=== PATIENT | male | born 2000 | race American Indian/Alaskan Native ===

== ENCOUNTER 2023-06-02 07:41 | Emergency (ER) | payer SELFPAY ==
[2023-06-02 07:54] VITALS: BP 111/76; PULSE 124; RESP 18; TEMP 36.7; O2SAT 98
[2023-06-02] MEDS: SODIUM CHLORIDE 0.9% IV 1,000 ML 999 ML IV CONT (08:14)
[2023-06-02] MEDS: ONDANSETRON INJ 4 MG/2 ML VIAL IV PUSH (08:14)
[2023-06-02] MEDS: methylPREDNISolone SOD SUCC 125 MG VIAL IV PUSH (08:15)
[2023-06-02] MEDS: diphenhydrAMINE HCl INJ 50 MG/ML VIAL 25 MG IV PUSH (08:15)
[2023-06-02] MEDS: FAMOTIDINE 20 MG/2 ML VIAL IV PUSH (08:15)
--- NOTE | 2023-06-02 08:17 | ED.SKABFB ---
HPI - Skin/Abscess/Foreign Bdy General Chief complaint: Skin/Abscess/Foreign Body Stated complaint: rash Time Seen by Provider: 06/02/23 07:57 History of Present Illness HPI narrative: Pt awlke with hives on back and extremities and had episode of vomiting and diarrhea. Pt took benadryl 25 mg po. Pt used new conditioner hair product last night but otherwise no new soaps or detergents r meds. Pt denies SOB or throat swelling. Related Data Allergies Allergy/AdvReac Type Severity Reaction Status Date / Time No Known Allergies Allergy Mild Verified 06/02/23 08:03 Review of Systems Review of Systems: All systems reviewed & are unremarkable except as noted in HPI and below Exam Const: General: healthy appearing Nutritional Appearance: well nourished Orientation/consciousness: patient oriented x3 Limitations: no limitations HENMT: Mouth: Yes Normal oral and palatal mucosa present Eyes: Conjunctivae: conjunctivae normal EOM: EOMs intact bilaterally Neck: Neck: normal visual inspection Resp: Effort & Inspection: normal respiratory effort Auscultation: clear to auscultation bilaterally Cardio: Rate: regular rate Rhythm: regular rhythm Skin: Other: hives trun and extremities Neuro: General: patient oriented x3, moves all extremities and no focal motor deficits Speech: normal speech Extrem: General: normal to inspection and no clubbing, cyanosis or edema Psych: Mental Status: mental status grossly normal Affect: normal affect Attitude: cooperative Course Vital Signs Vital signs: Vital Signs Temperature 98.0 F 06/02/23 07:54 Pulse Rate 124 H 06/02/23 07:54 Respiratory Rate 18 06/02/23 07:54 Blood Pressure 111/76 06/02/23 07:54 Pulse Oximetry 98 06/02/23 07:54 Oxygen Delivery Room Air 06/02/23 07:54 Temperature 98.0 F 06/02/23 07:54 Pulse Rate 91 06/02/23 09:02 Respiratory Rate 16 06/02/23 09:02 Blood Pressure 132/78 06/02/23 09:02 Pulse Oximetry 99 06/02/23 09:02 Oxygen Delivery Room Air 06/02/23 07:54 MDM - Skin/Abscess/Foreign Bdy MDM Narrative Medical decision making narrative: seems like classic urticaria, will treat with benadryl pepcid solumedrol will give some zofran for nausea and some IVF as well. Pt feels better after meds, hives nearly resolved. can take otc pepcid and benadryl and will prescribe prednisone for home. Discharge Plan Discharge Clinical Impression: Urticaria Patient Disposition: Home, Self-Care Condition: Improved Instructions: Antibiotic Form, Urticaria (ED) Prescriptions: New prednisone 10 mg tablets,dose pack See Rx Instructions .ROUTE .COMPLEX Qty: 21 0RF Rx Instructions: orally per package directions Follow-up/Referrals: Theo Calloway MD [Primary Care Provider] -
[2023-06-02 08:25] VITALS: BP 128/87; PULSE 86; RESP 16; O2SAT 99
[2023-06-02 09:02] VITALS: BP 132/78; PULSE 91; RESP 16; O2SAT 99
== END 2023-06-02 09:04 | disposition home or self-care (01) ==
PROVIDERS: Emergency Provider Emergency Medicine; PCP Pediatrics
DX: L50.9 Urticaria, unspecified (principal)
CPT/HCPCS: 96361; 96374; 96375; 99284; J1200; J2405; J2930; J7030

== ENCOUNTER 2024-11-16 13:02 | Outpatient (CLI) | payer BC, SELFPAY ==
--- NOTE | ~2024-11-16 | US_ITS ---
Testicular ultrasound with doppler. Indication: Hematochezia. Technique: Real-time sonography the scrotum was performed. Color flow Doppler and Doppler spectral an alysis were performed. Findings: The testes are homogeneous in echotexture bilaterally. There is no evidence of an intrates ticular mass. The right testis measures 4.5 x 2.2 x 2.6 cm and the left 4.1 x 2.5 x 2.5 cm. There is color-flow seen to both testes. Arterial and venous spectral waveforms are seen in both testes. There is no sonographic evidence of torsion. Small left epididymal cyst or spermatocele present. Right epi didymis unremarkable. Impression: Small probable left epididymal cyst or spermatocele. Reviewed, dictated and finalized at location . Impression: Small probable left epididymal cyst or spermatocele.
== END 2024-11-16 13:03 | disposition home or self-care (01) ==
LOC: MICIMG 13:07
DX: N50.89 Other specified disorders of the male genital organs (principal); K92.1 Melena
CPT/HCPCS: 76870; 93976

== ENCOUNTER 2024-12-22 00:29 | Day surgery (SDC) | payer BC, SELFPAY ==
[2024-12-14 12:42] VITALS: BMI 21.4
--- OUTSIDE RECORDS SUMMARY | 2024-12-22 00:31 | XMS_ITS | Clinical Summary ---
Author Organization [address] Address [address] [place] [phone] Care Team Providers Care Supervisor Looping Name Role Phone Theo Quinn MD Primary Care Provi vanessa Allergies No known active allergies Medications ketoconazole (NIZORAL) 2 % cream Apply topically daily 60 g 1 5 12/04/19 25 Active Problems Problem Noted Date Diagnosed Date Elevated blood pressure read ing without diagnosis of hypertension 11/03/2024 Routine adult health maintenance 11/03/2024 Hematochezia 11/03/2024 Scrotal mass 11/03/2024 Tinea corporis 11/03/2024 Encounters Date Type Department Care Team Description 12/16/2024 Telephone [facility] Primary Care at [address] [phone] Theo Quinn MD 12/10/2024 Orders Only [facility] Primary Care at [address] [phone] Francois Montez MD 11/17/2024 Telephone [facility] Primary Care at [address] [phone] Theo Quinn MD Medical Records Request 11/10/2024 Documentation [facility] Primary Care at [address] [phone] Joann Maynard 11/10/2024 Telephone [facility] Primary Care at [address] [phone] Theo Quinn MD Medical Question/Miscellane ous 11/07/2024 Results Follow-Up [facility] Primary Care at [address] [phone] Theo Quinn MD 11/05/2024 11:45 AM CDT Lab [facility] Outpatient Lab at [address] [phone] 11/04/2024 5:30 PM CDT - 11/04/2024 11:59 PM CDT Hospital Encounter [address] [address] Hematochezia Discharge Disposition: Discharge to home or self care 11/03/2024 9:30 AM CDT Lab [facility] Outpatient Lab at [address] [phone] Blood in stool (Primary Dx) 11/03/2024 9:21 AM CDT - 11/03/2024 11:59 PM CDT Hospital Encounter [address] [address] Hematochezia Discharge Disposition: Discharge to home or self care 11/03/2024 8:45 AM CDT Office Visit [facility] Primary Care at [address] [phone] Theo Quinn MD Routine adult health maintenance (Primary Dx); Elevated blood pressure reading without diagnosis of hypertension; Hematochezia; Scrotal mass; Tinea corporis 11/03/2024 Results Follow-Up [facility] Primary Care at [address] [phone] Theo Quinn MD 11/03/2024 Telephone [facility] Primary Care at [address] [place] [phone] Theo Quinn MD Medical Question/Miscellane ous from Last 3 Months Immunizations Immunization Administration Dates Next Due DTaP 02/25/2002,2001,2001 Hep B, Adolescent or Pediatric 2001 Hib (PRP-T) 02/25/2002,2001,2001 IPV 2001,2001 Family History Medical History Relation Name Comments Cancer Maternal Grandfather Colon cancer Maternal Grandmother No Known Problems Mother Relation Name Status Comments Father Unknown Maternal Grandfather Maternal Grandmother Mother Alive Social History Tobacco Use Types Packs/Day Years Used Date Smoking Tobacco: Never Passive Smoke Exposure: Never Smokeless Tobacco: Never PHQ-2 Answer Date Recorded PHQ-2 Total Score (If total score is 3 or more points, staff should administer the PHQ-9) 0 11/03/2024 Sex and Gender Information Value Date Recorded Sex Assigned at Not on file Legal Sex Male 7:18 PM CDT Gender Identity Not on file Sexual Orientation Not on file Obstetrics History Last Filed Vital Signs Vital Sign Reading Time Taken Comments Blood Pressure 130/88 11/03/2024 8:45 AM CDT Pulse 107 11/03/2024 8:45 AM CDT Temperature 36.2 C (97.2 F) 11/03/2024 8:45 AM CDT Respiratory Rate 16 11/03/2024 8:45 AM CDT Oxygen Saturation 99% 11/03/2024 8:45 AM CDT Inhaled Oxygen Concentration - - Weight 66.5 kg (146 lb 11.2 oz) 11/03/2024 8:45 AM CDT Height 177.8 cm (5' 10 ) 11/03/2024 8:45 AM CDT Body Mass Index 21.05 11/03/2024 8:45 AM CDT Plan of Treatment Health Maintenance Due Date Last Done Comments Hepatitis C Screening 2001 DTaP/Tdap/Td Vaccine (4 - Tdap) 2012 02/25/2002, 2001, 2001 Varicella Vaccines (1 of 2 - 13+ 2-dose series) 2014 HPV Vaccines (1 - Male 3-dos e series) 2016 Meningococcal B Vaccine (1 o f 2 - Standard) 2017 Regular Well Visit/Exam 18-64 2019 Covid-19 Vaccine (3 - 2023-2 5 season) 2024 03/19/2021, 02/26/2021 Influenza Vaccine (Season Ended) 2025 Depression Screening 11/03/2025 11/03/2024 Hepatitis B Screening Completed 2001 Pneumococcal vaccine <65 Aged Out No longer eligible based on patient's age to complete this topic Procedures Procedure Name Priority Date/Time Associated Diagnosis Comments US SCROTUM Schedule Routine, Read Routine (OP Routine) 11/16/2024 10:29 AM CDT GUAIAC OCCULT BLOOD, FECAL, NOT FOR NEOPLASM SCREENING Routine 11/04/2024 5:30 PM CDT Hematochezia EGFR Routine 11/03/2024 9:21 AM CDT Hematochezia DIFFERENTIAL AUTO Routine 11/03/2024 9:2 1 AM CDT Hematochezia COMPREHENSIVE METABOLIC PANEL Routine 11/03/2024 9:21 AM CDT Hematochezia CBC WITH AUTO DIFFERENTIAL Routine 11/03/2024 9:21 AM CDT Hematochezia from Last 3 Months Results * US Scrotum (11/16/2024 10:29 AM CDT) Anatomical Region Laterality Modality Testis N/A Ultrasound Historical Provider MD ROOT US PROCEDURES Final R esult * Guaiac occult blood, fecal, not for neoplasm screening (11/04/2024 5:30 PM CDT) Guaiac occult blood, fecal Negative Negative Stool 11/04/2024 5:30 PM CDT 11/05/2024 8:53 PM CDT Theo Quinn MD LAB BODY FLUIDS AND STOOLS ORDERABLES Final Result Performing Organization Address City/[facility] Co de Phone Number [facility] HERRERA [address] [place] [address] * eGFR (11/03/2024 9:21 AM CDT) eGFR >90 >=60 mL/min/1. 73 m2 Comment: Interpretive Data Reference Interval Normal >/= 90 mL/min/1.73m2 Mildly decreased* 60 - 89 mL/min/1.73m2 Mildly to moderately decreased 45 - 59 mL/min/1.73m2 Moderately to severely decreased 30 - 44 mL/min/1.73m2 Severely decreased 15 - 29 mL/min/1.73m2 Kidney Failure < 15 mL/min/1.73m2 *Relative to young adult level Estimated glomerular filtration rate is determined by the 2020 CKD-EPI equation recommended by the National Kidney Foundation (A Unifying Approach to GFR Estimation: Recommendations of the NKF-ASK Task Force on Reassessing the Inclusion of Race in Diagnosing Kidney Disease, JASN 2020). The CKD-EPI equation should not be used for patients with unstable renal function and has not been validated in children and those over 70. Current interpretive data was last reviewed 2021. Blood 11/03/2024 9:21 AM CDT 11/03/2024 3:07 PM CDT Theo Quinn MD LAB BLOOD ORDERABLE S Final Result Performing Organization Address City/[facility]/ZIP Co de Phone Number SHEILA HERRERA [address] [place] [address] * Differential, auto (11/03/2024 9:21 AM CDT) Neutrophil abs 3.2 1.5 - 6.5 K/cumm Imm gran abs 0.0 0.0 - 0.1 K/cumm [facility] Lymphocyte abs 2.1 0.8 - 3.3 K/cumm [facility] Monocyte abs 0.4 0.2 - 0.8 K/cumm [facility] Eosinophil abs 0.1 0.0 - 0.5 K/cumm [facility] Basophil abs 0.0 0.0 - 0.1 K/cumm [facility] Neutrophil pct 54.5 % [facility] Comment: Interpretive Data Percent cell count reference ranges are not reported, since discordance with absolute values may lead to misinterpretation of CBC data. Current Interpretive Data was last revised on 2017. Imm gran pct 0.2 % [facility] Comment: Interpretive Data Percent cell count reference ranges are not reported, since discordance with absolute values may lead to misinterpretation of CBC data. Current Interpretive Data was last revised on 2017. Lymphocyte pct 35.5 % [facility] Comment: Interpretive Data Percent cell count reference ranges are not reported, since discordance with absolute values may lead to misinterpretation of CBC data. Current Interpretive Data was last revised on 2017. Monocyte pct 7.3 % [facility] Comment: Interpretive Data Percent cell count reference ranges are not reported, since discordance with absolute values may lead to misinterpretation of CBC data. Current Interpretive Data was last revised on 2017. Eosinophil pct 2.0 % [facility] Comment: Interpretive Data Percent cell count reference ranges are not reported, since discordance with absolute values may lead to misinterpretation of CBC data. Current Interpretive Data was last revised on 2017. Basophil pct 0.5 % [facility] Comment: Interpretive Data Percent cell count reference ranges are not reported, since discordance with absolute values may lead to misinterpretation of CBC data. Current Interpretive Data was last revised on 2017. Blood 11/03/2024 9:21 AM CDT 11/03/2024 3:01 PM CDT us Theo Quinn MD LAB BLOOD ORDERABLE S Final Result [facility]ILA HERRERA [address] Department [place] [address] * CBC with auto differential (11/03/2024 9:21 AM CDT) WBC 5.9 3.8 - 9.9 K/cumm Hgb 14.8 13.0 - 17.5 g/dL [facility] Hct 45.7 38.9 - 50.3 % [facility] Plt 283 150 - 400 K/cumm [facility] MPV 10.3 9.1 - 12.3 fL [facility] RBC 5.15 4.30 - 5.80 M/cumm [facility] MCV 88.7 81.3 - 96.4 fL [facility] MCH 28.7 27.1 - 33.3 pg [facility] MCHC 32.4 32.3 - 35.7 g/dL [facility] RDW CV 12.6 11.1 - 14.9 % [facility] RDW SD 41.1 35.7 - 48.1 fL [facility] NRBC abs 0.00 0.00 - 0.01 K/cumm [facility] Blood 11/03/2024 9:21 AM CDT 11/03/2024 3:01 PM CDT Theo Quinn MD LAB BLOOD ORDERABLE S Final Result [facility] [address] Department [place] [address] * (ABNORMAL) Comprehensive metabolic panel (11/03/2024 9:21 AM CDT) Sodium 141 135 - 145 mmol/L Potassium, pl 4.0 3.3 - 4.9 mmol/L [facility] Chloride 103 97 - 110 mmol/L [facility] CO2 28 22 - 32 mmol/L [facility] Anion gap 10 2 - 15 mmol/L [facility] BUN 11 6 - 25 mg/dL [facility] Creatinine 0.77(L) 0.80 - 1.30 mg/dL [facility] Glucose 99 70 - 199 mg/dL [facility] Comment: Interpretive Data Fasting glucose >/= 126 mg/dl is diagnostic for diabetes. Fasting is defined as no caloric intake for at least 8 hours. Fasting glucose between 100 mg/dl to 125 mg/dl is diagnostic of prediabetes. In a patient with classic symptoms of hyperglycemia or hyperglycemic crisis, a random glucose >/= 200 mg/dl is diagnostic for diabetes. In the absence of unequivocal hyperglycemia, results should be confirmed by repeat testing. The classification and Diagnosis of Diabetes Diabetes Care 202; 46: S19-S40. Current interpretive data was last revised 2022. Calcium 9.6 8.5 - 10.3 mg/dL [facility] Bilirubin, total 0.4 0.1 - 1.2 mg/dL [facility] Protein, pl 7.7 6.5 - 8.5 g/dL [facility] Albumin 4.6 3.5 - 5.0 g/dL [facility] Alk phos 61 40 - 130 Units/L [facility] ALT 36 7 - 55 Units/L [facility] AST 27 10 - 50 Units/L [facility] Blood 11/03/2024 9:21 AM CDT 11/03/2024 3:01 PM CDT us Theo Quinn MD LAB BLOOD ORDERABLE S Final Result [facility] [id number] Department [place] [address] from Last 3 Months Insurance [facility] Care Teams Supervisor Looping Relationship Specialty Start Date End Date Theo Quinn MD [address] [facility] [address] [place] [address] PCP - General Family Practice 11/03/24
--- OUTSIDE RECORDS SUMMARY | 2024-12-22 00:31 | XMS_ITS | Referral Summary ---
Author Organization [address] Address [address] [place] [phone] Care Team Providers Care Crm Marketing Specialist Name Role Phone Theo Quinn MD Primary Care Provi vanessa Encounters Date Type Department Care Team Description 12/16/2024 Telephone [facility] Primary Care at [address] [phone] Theo Quinn MD 12/10/2024 Orders Only [facility] Primary Care at [address] [phone] ProviderFrancois MD 11/17/2024 Telephone [facility] Primary Care at [address] [phone] Theo Quinn MD Medical Records Request 11/10/2024 Documentation [facility] Primary Care at [address] [phone] Joann Maynard 11/10/2024 Telephone [facility] Primary Care at [address] [phone] Theo Quinn MD Medical Question/Miscellane ous 11/07/2024 Results Follow-Up [facility] Primary Care at [address] [phone] Theo Quinn MD 11/05/2024 11:45 AM CDT Lab [facility] Outpatient Lab at [address] [phone] 11/04/2024 5:30 PM CDT - 11/04/2024 11:59 PM CDT Hospital Encounter [address] [address] Hematochezia Discharge Disposition: Discharge to home or self care 11/03/2024 Results Follow-Up [facility] Primary Care at [address] [phone] Theo Quinn MD 11/03/2024 9:21 AM CDT - 11/03/2024 11:59 PM CDT Hospital Encounter [address] [address] Hematochezia Discharge Disposition: Discharge to home or self care 11/03/2024 Telephone [facility] Primary Care at [address] [phone] Theo Quinn MD Medical Question/Miscellane ous 11/03/2024 9:30 AM CDT Lab [facility] Outpatient Lab at [address] [phone] Blood in stool (Primary Dx) 11/03/2024 8:45 AM CDT Office Visit [facility] Primary Care at [address] [phone] Theo Quinn MD Routine adult health maintenance (Primary Dx); Elevated blood pressure reading without diagnosis of hypertension; Hematochezia; Scrotal mass; Tinea corporis from Last 3 Months Allergies No known active allergies Medications ketoconazole (NIZORAL) 2 % cream Apply topically daily 60 g 1 12/04/19 25 Active Problems Problem Noted Date Diagnosed Date Elevated blood pressure read ing without diagnosis of hypertension 11/03/2024 Routine adult health maintenance 11/03/2024 Hematochezia 11/03/2024 Scrotal mass 11/03/2024 Tinea corporis 11/03/2024 Immunizations Immunization Administration Dates Next Due DTaP 02/25/2002,2001,2001 Hep B, Adolescent or Pediatric 2001 Hib (PRP-T) 02/25/2002,2001,2001 IPV 2001,2001 Social History Tobacco Use Types Packs/Day Years [...] on file Sexual Orientation Not on file Last Filed Vital Signs Vital Sign Reading [...] 11/03/2024 8:45 AM CDT Plan of Treatment Not on file Procedures Procedure Name Priority Date/Time Associated Diagnosis [...] Anatomical Region Laterality Modality Testis N/A Ultrasound us Historical Provider MD ROOT US PROCEDURES Final R esult * Guaiac occult blood, fecal, not for neoplasm screening (11/04/2024 5:30 PM CDT) Guaiac occult blood, fecal Negative Negative Stool 11/04/2024 5:30 PM CDT 11/05/2024 8:53 PM CDT Theo Quinn MD LAB BODY FLUIDS AND STOOLS ORDERABLES Final Result [facility] [address] Department [place] [address] * eGFR (11/03/2024 9:21 AM [...] Inclusion of Race in Diagnosing Kidney Disease, FEI 2020). The CKD-EPI equation should not be used for patients with unstable renal function and has not been validated in children and those over 70. Current interpretive data was last reviewed 2021. Blood 11/03/2024 9:21 AM CDT 11/03/2024 3:07 PM CDT us Theo Quinn MD LAB BLOOD ORDERABLE S Final Result [facility] [address] Department [place] [address] * Differential, auto (11/03/2024 9:21 AM CDT) Neutrophil abs 3.2 1.5 - 6.5 K/cumm Imm gran abs 0.0 0.0 - 0.1 K/cumm [facility] Lymphocyte abs 2.1 0.8 - 3.3 K/cumm [facility] Monocyte abs 0.4 0.2 - 0.8 K/cumm [facility] Eosinophil abs 0.1 0.0 - 0.5 K/cumm [facility] Basophil abs 0.0 0.0 - 0.1 K/cumm [facility] Neutrophil pct 54.5 % [facility] Comment: Interpretive Data Percent cell count reference ranges are not reported, since discordance with absolute values may lead to misinterpretation of CBC data. Current Interpretive Data was last revised on 2017. Imm gran pct 0.2 % [facility] Comment: Interpretive Data Percent cell count reference ranges are not reported, since discordance with absolute values may lead to misinterpretation of CBC data. Current Interpretive Data was last revised on 2017. Lymphocyte pct 35.5 % [facility] Comment: Interpretive Data Percent cell count reference ranges are not reported, since discordance with absolute values may lead to misinterpretation of CBC data. Current Interpretive Data was last revised on 2017. Monocyte pct 7.3 % [facility] Comment: Interpretive Data Percent cell count reference ranges are not reported, since discordance with absolute values may lead to misinterpretation of CBC data. Current Interpretive Data was last revised on 2017. Eosinophil pct 2.0 % [facility] Comment: Interpretive Data Percent cell count reference ranges are not reported, since discordance with absolute values may lead to misinterpretation of CBC data. Current Interpretive Data was last revised on 2017. Basophil pct 0.5 % [facility] Comment: Interpretive Data Percent cell count reference ranges are not reported, since discordance with absolute values may lead to misinterpretation of CBC data. Current Interpretive Data was last revised on 2017. Blood 11/03/2024 9:21 AM CDT 11/03/2024 3:01 PM CDT Theo Quinn MD LAB BLOOD ORDERABLE S Final Result Performing Organization Address City/State/[facility] Co de Phone Number [facility] [address] Department [place] [address] * CBC with auto differential (11/03/2024 9:21 AM CDT) WBC 5.9 3.8 - 9.9 K/cumm Hgb 14.8 13.0 - 17.5 g/dL [facility] Hct 45.7 38.9 - 50.3 % [facility] Plt 283 150 - 400 K/cumm [facility] MPV 10.3 9.1 - 12.[address] [facility] RBC 5.15 4.30 - 5.80 M/cumm [facility] MCV 88.7 81.3 - 96.[address] [facility] MCH 28.7 27.1 - 33.[address] [facility] MCHC 32.4 32.3 - 35.7 g/dL [facility] RDW CV 12.6 11.1 - 14.9 % [facility] RDW SD 41.1 35.7 - 48.[address] [facility] NRBC abs 0.00 0.00 - 0.01 K/cumm [facility] Blood 11/03/2024 9:21 AM CDT 11/03/2024 3:01 PM CDT Theo Quinn MD LAB BLOOD ORDERABLE S Final Result [facility] [address] [place] [address] * (ABNORMAL) Comprehensive metabolic panel (11/03/2024 9:21 AM CDT) Sodium 141 135 - 145 mmol/L Potassium, pl 4.0 3.3 - 4.9 mmol/L [facility] Chloride 103 97 - 110 mmol/L [facility] CO2 28 22 - 32 mmol/L [facility] Anion gap 10 2 - 15 mmol/L [facility] BUN 11 6 - 25 mg/dL [facility] Creatinine 0.77(L) 0.80 - 1.30 mg/dL [facility] Glucose 99 70 - 199 mg/dL [facility] Comment: Interpretive Data Fasting glucose >/= 126 [...] classification and Diagnosis of Diabetes Diabetes Care 2021; 46: S19-S40. Current interpretive data was last [...] ORDERABLE S Final Result Performing Organization Address City/[facility]/ZIP Co de Phone Number SHEILA HERRERA [address] Department [place] [address] from Last 3 Months Insurance [facility] Care Teams Crm Marketing Specialist Relationship Specialty Start Date End Date Theo Quinn MD [address] [facility] [[email or web address] [address] [place] [address] PCP - General Family Practice 11/03/24
--- OUTSIDE RECORDS SUMMARY | 2024-12-22 00:31 | XMS_ITS | Encounter Summary ---
Author Organization [facility] Healthcare Address [address] [place] [id number] Care Team Providers Care Motor Setter Name Role Phone Theo Quinn MD Primary Care Provi vanessa Encounter Details Date Type Department Care Team (Late st Contact Info) Description 11/10/2024 Documentation [facility] Primary Care at [address] [phone] Joann Maynard Social History Tobacco Use Types Packs/Day Years [...] on file Sexual Orientation Not on file documented as of this encounter Plan of Treatment Not on file documented as of this encounter Visit Diagnoses Not on filedocumented in this encounter Care Teams Motor Setter Relationship Specialty Start Date End Date Theo Quinn MD [address] [address] PCP - General Family Practice 11/03/24 documented as of this encounter
--- OUTSIDE RECORDS SUMMARY | 2024-12-22 00:31 | XMS_ITS | Encounter Summary ---
Author Organization [facility] Healthcare Address [address] [place] [id number] Care Team Providers Care Press Tender Long Goods Name Role Phone Theo Quinn MD Primary Care Provi vanessa Encounter Details Date Type Department Care Team (Late st Contact Info) Description 11/07/2024 Results Follow-Up [facility] Primary Care at [address] [place] [phone] Theo Quinn MD [address] [facility] [address] [place] [address] Social History Tobacco Use Types Packs/Day Years [...] on file documented as of this encounter Miscellaneous Notes * Result Encounter Note - Kathie Chilel MA - 11/08/2024 11:52 AM CDT Viewed by pt through [employer] documented in this encounter Plan of Treatment Not on file documented as of this encounter Visit Diagnoses Not on filedocumented in this encounter Care Teams Press Tender Long Goods Relationship Specialty Start Date End Date Theo Quinn MD [address] [facility] [address] [place] [address] PCP - General Family Practice 11/03/24 documented as of this encounter
--- OUTSIDE RECORDS SUMMARY | 2024-12-22 00:31 | XMS_ITS | Encounter Summary ---
Author Organization [facility] Healthcare Address [address] [place] [id number] Care Team Providers Care Hall Cleaner Name Role Phone Theo Quinn MD Primary Care Provi vanessa Encounter Details Date Type Department Care Team (Late st Contact Info) Description 11/03/2024 Results Follow-Up [facility] Primary Care at [address] [place] [id number] Theo Quinn MD [address] [facility] [address] [place] [address] Social History Tobacco Use Types Packs/Day Years [...] Miscellaneous Notes * Result Encounter Note - Krupa Varela MA - 11/04/2024 10:15 AM CDT Patient informed. documented in this encounter Plan of Treatment Not on file documented as of this encounter Visit Diagnoses Not on filedocumented in this encounter Care Teams Hall Cleaner Relationship Specialty Start Date End Date Theo Quinn MD [address] [place] [address] [place] [address] PCP - General Family Practice 11/03/24 documented as of this encounter
[2024-12-22 10:59] VITALS: BP 132/82; PULSE 116; RESP 16; TEMP 35.9; O2SAT 100
[2024-12-22] MEDS: LACTATED RINGERS 1,000 ML 150 ML IV CONT (11:11)
--- NOTE | 2024-12-22 11:48 | WPDANESEPPF ---
Anes - Initial Pre Proc Eval Procedure: Operation Date: 12/22/24 12:30 Proposed Procedures p Colonoscopy - Isra Herrera MD Date/Time: 12/22/24 11:48 Surgeon: Isra Herrera MD Pre Op Diagnosis: Melena Patient Data Age: 24 Gender: M Height: 1.75 m Weight: 65.8 kg Last Vital Signs Temp 35.9 C L 12/22/24 10:59 Pulse 116 H 12/22/24 10:59 Resp 16 12/22/24 10:59 BP 132/82 12/22/24 10:59 Pulse Ox 100 12/22/24 10:59 O2 Del Method Room Air 12/22/24 10:59 Allergies Allergy/AdvReac Type Severity Reaction Status Date / Time No Known Allergies Allergy Mild Verified 12/22/24 10:57 Home Medications Medication Instructions Recorded Confirmed Type ketoconazole 2 % topical cream 1 applic topical DAILY 12/14/24 12/22/24 History Patient hx anesthesia problems: none Family hx anesthesia problems: none Results Review: All pre-operative results and documents have been reviewed as part of the pre-operative evaluation. [facility] Social History Social History Smoking status: Never smoker Alcohol intake: never Substance use: never Substance use type: does not use Living arrangements: with family Spiritual care concerns: No Anes - Eval Final PreProcedure Day of Procedure 12/22/24 11:48 Patient weight: normal Heart: regular rate and rhythm Lungs: clear to auscultation Airway: Mallampati scale class 1 Neurological: alert and oriented Last oral intake: >/= 8 hours ASA classification: I Emergent: no Anesthetic plan: proceed Anesthesia type and monitoring: general GIVS and standard monitoring Results Review: All pre-operative results and documents have been reviewed as part of the pre-operative evaluation. Informed Consent: The patient's anesthetic plan and its attendant risks and benefits were discussed with the patient/family/POA. Questions were solicited and answers provided to the satisfaction of the patient/family/POA.
--- NOTE | 2024-12-22 12:14 | PM.IMHP ---
H&P: HPI History of Present Illness Date/Time: 12/22/24 12:14 Chief Complaint: rectal bleeding Narrative: patient has been experiencing intermittent episodes of rectal bleeding, bright red type, not associated with Tenesmus, abdominal pain, diarrhea, fever or systemic symptoms. he is referred for colonoscopy. Review of Systems Review of Systems: All systems reviewed & are unremarkable except as noted in HPI and below PMFSH Social History Social History Smoking status: Never smoker Alcohol intake: never Substance use: never Substance use type: does not use Living arrangements: with family Spiritual care concerns: No Meds Home Medications and Allergies Home Medications Medication Instructions Recorded Confirmed Type ketoconazole 2 % topical cream 1 applic topical DAILY 12/14/24 12/22/24 History Allergies Allergy/AdvReac Type Severity Reaction Status Date / Time No Known Allergies Allergy Mild Verified 12/22/24 10:57 Vital Signs Vital Signs - 24 hr 12/22/24 10:59 Temperature 96.7 F L Pulse Rate 116 H Respiratory Rate 16 Blood Pressure 132/82 Pulse Oximetry 100 Oxygen Delivery Room Air Exam Const: General: cooperative and healthy appearing Resp: Effort & Inspection: normal respiratory effort and able to speak in complete sentences Auscultation: clear to auscultation bilaterally Cardio: Rate: regular rate Rhythm: regular rhythm GI: Inspection: normal to inspection GI Palp: No No hepatosplenomegaly present Auscultation: normal bowel sounds Rectal Exam: deferred Skin: General skin exam: normal color Psych: Appearance: grossly normal Mental Status: mental status grossly normal Assessment and Plan Assessment and plan (1) Bright red rectal bleeding: Code(s): K62.5 - Hemorrhage of anus and rectum Status: Acute Assessment and Plan: The patient is deemed a good candidate for the procedure. Consent signed. Will proceed.
[2024-12-22 12:33] VITALS: BP 84/48; PULSE 98; RESP 20; O2SAT 96
[2024-12-22 12:43] VITALS: BP 86/53; PULSE 90; RESP 18; O2SAT 97
[2024-12-22 12:53] VITALS: BP 112/79; PULSE 86; RESP 18; O2SAT 100
== END 2024-12-22 13:15 | disposition home or self-care (01) ==
PROVIDERS: Referring Provider Nurse Practitioner Family; Visit Provider Internal Medicine Gastroenterology
PROC: 0DJD8ZZ Inspection of Lower Intestinal Tract, Via Natural or Artificial Opening Endoscopic (ICD-10-PCS; CPT 45378; principal; 2024-12-22 12:30)
DX: K62.5 Hemorrhage of anus and rectum (principal); D12.5 Benign neoplasm of sigmoid colon; K64.8 Other hemorrhoids
CPT/HCPCS: 45385; 88305; J2704; J7120